=== PATIENT | female | born 1950 | race Caucasian/White ===

== ENCOUNTER → 2016-05-02 | Outpatient (CLI) | payer OTHER ==
[~2016-05-02] MED LIST: GADAVIST IV PRN
--- NOTE | 2016-05-02 11:53 | DIAGNOSTIC IMAGING REPORT ---
MRI OF THE BRAIN WITHOUT AND WITH IV CONTRAST CLINICAL HISTORY: Migraine headaches. COMPARISON STUDY: No previous studies for comparison. TECHNIQUE: Utilizing a 1.5 Anjali magnet and dedicated coil, multiplanar, multiecho imaging of the brain was performed pre and postcontrast administration. IV administration of 6.5 mL of Gadavist contrast was uneventful. FINDINGS: There are no areas of restricted diffusion. No acute intracranial hemorrhage, midline shift or mass effect is present. Brain volume is normal for age. Ventricular system is normal. The basilar cisterns are patent. There are no extra-axial collections. Flow-voids for the major intracranial vessels are present. There are no intracranial masses or areas of pathologic enhancement. There are innumerable white matter T2 hyperintense foci. Several signal is maintained. Orbits and sinuses are unremarkable. There is no fluid within the mastoid air cells. IMPRESSION: 1. No acute intracranial findings. 2. No intracranial masses. 3. Numerous white matter T2 hyperintense foci. While nonspecific, the findings statistically represent small vessel disease. Electronically signed by: Percy Yousif M.D. 05/02/2016 11:51 AM Dictated Date/Time: 05/02/2016 11:45 AM
== END | disposition home or self-care (01) ==
LOC: C.MRI 10:53
PROVIDERS: ATTEND Family Medicine
DX: G43.909 Migraine, unspecified, not intractable, without status migrainosus (principal)

== ENCOUNTER → 2016-05-08 | Outpatient (CLI) | payer OTHER | END | disposition home or self-care (01) | LOC: C.MAMM 11:02 | PROVIDERS: ATTEND Family Medicine | DX: Z13.820 Encounter for screening for osteoporosis (principal); M85.89 Other specified disorders of bone density and structure, multiple sites ==

== ENCOUNTER → 2016-05-24 | Outpatient (CLI) | payer OTHER | END | disposition home or self-care (01) | LOC: C.PAPS 16:39 | PROVIDERS: ATTEND Family Medicine | DX: Z12.4 Encounter for screening for malignant neoplasm of cervix (principal); N95.2 Postmenopausal atrophic vaginitis ==

== ENCOUNTER → 2016-06-07 | Outpatient (CLI) | payer OTHER ==
--- NOTE | 2016-06-08 07:55 | MAMMOGRAPHY REPORT ---
BILATERAL DIGITAL SCREENING MAMMOGRAM WITH CAD: 06/07/2016 CLINICAL HISTORY: Routine screening. Patient has no complaints. TECHNIQUE: Bilateral CC and MLO views were obtained. Current study was also evaluated with a Compute r Aided Detection (CAD) system. COMPARISON: Comparison is made to exams dated: 05/25/2015 mammogram, 05/22/2014 mammogram, 05/15/2013 ultrasound, 05/15/2013 mammogram, and 04/24/2013 mammogram - [facility]. BREAST COMPOSITION: The tissue of both breasts is heterogeneously dense, which may obscure small ma sses. FINDINGS: There is a 7 mm nodular asymmetry in the posterior right breast, along the posterior nipp le line on the CC view. Although this could represent normal overlapping tissue, additional spot co mpression tomosynthesis views and possible ultrasound are recommended. No other suspicious mass, architectural distortion or cluster of microcalcifications is seen bilater ally. IMPRESSION: ACR BI-RADS CATEGORY 0: INCOMPLETE EVALUATION: NEED ADDITIONAL IMAGING EVALUATION The 7 mm nodular asymmetry in the right breast needs additional evaluation. The patient will be called to schedule an appointment. Approximately 10% of breast cancers are not detected with mammography. A negative mammographic repor t should not delay biopsy if a clinically suggestive mass is present. Jenny Lee M.D. ay/:06/07/2016 15:59:36 Grease And Tallow Pumper: Jacqueline CHIN(R)(M), [facility] letter sent: Addl Imaging 0 BI-RADS Code: ACR BI-RADS Category 0: Incomplete Evaluation: Need Additional Imaging Evaluation
== END | disposition home or self-care (01) ==
LOC: C.MAMM 15:29
PROVIDERS: ATTEND Family Medicine
DX: Z12.31 Encounter for screening mammogram for malignant neoplasm of breast (principal); R92.8 Other abnormal and inconclusive findings on diagnostic imaging of breast

== ENCOUNTER → 2016-06-15 | Outpatient (CLI) | payer OTHER ==
--- NOTE | 2016-06-15 15:03 | MAMMOGRAPHY REPORT ---
UNILATERAL RIGHT DIGITAL DIAGNOSTIC MAMMOGRAM TOMOSYNTHESIS AND TARGETED RIGHT ULTRASOUND: 06/15/2016 CLINICAL HISTORY: Callback from screening mammogram for right breast asymmetry. TECHNIQUE: Breast tomosynthesis in addition to standard 2D mammography was performed. Right CC and MLO 2-D and tomosynthesis spot compression views were obtained. COMPARISON: Comparison is made to exams dated: 06/07/2016 mammogram, 05/25/2015 mammogram, 05/22/2014 m ammogram, 05/15/2013 ultrasound, 05/15/2013 mammogram, and 04/24/2013 mammogram - [facility]. BREAST COMPOSITION: The tissue of the right breast is heterogeneously dense, which may obscure smal l masses. FINDINGS: Spot compression views of the right breast demonstrate a probable obscured oval 12 mm mas s seen within the right 12:00 breast, which corresponds with the mammographic asymmetry in question. The mass is best seen on the tomosynthesis images. When compared to prior exams, the mass is like ly stable compared to the rolled cc view from the 05/15/2013 exam. Targeted ultrasound was performed of the right 12:00, 6:00, and subareolar breast. In the right 12: 00 breast, 2 cm from the nipple, there is an oval circumscribed parallel isoechoic mass with a few a nechoic cystic spaces seen internally, measuring 10 x 5 x 8 mm. An ultrasound was previously perfor med of this mass on 05/15/2013. Based on the prior images, the mass was shown to measure 7 x 5 mm, a lthough it is unclear which position the transducer was in when the images were taken and there are differences in measurement technique between the current and prior exam. Based on the fact that the mammograms show probable stability of the mass and given the differences in measurement technique, the mass is likely stable compared to the 2013 exam, and is probably benign and likely represents a fibroadenoma. Recommend follow-up ultrasound of the right breast in 6 months to confirm stability, given the differences in ultrasound measurements. IMPRESSION: ACR-BI-RADS CATEGORY 3: PROBABLY BENIGN, TARGETED ULTRASOUND ACR-BI-RADS CATEGORY 3: NC OBABLY BENIGN Isoechoic 10 mm mass in the right 12:00 breast, which is likely stable compared to the May 2013 ex am. The mass is probably benign and likely represents a fibroadenoma. Recommend follow-up ultrasou nd and possible diagnostic mammograms of the right breast in 6 months to confirm stability. The patient has been verbally notified of the results. Approximately 10% of breast cancers are not detected with mammography. A negative mammographic repor t should not delay biopsy if a clinically suggestive mass is present. Evi Ley M.D. ah/:06/15/2016 10:07:46 Senior Power Plant Operator: Jacqueline CHIN(Gus)(Andria), [facility] letter sent: Follow Up Recommended 3 BI-RADS Code: ACR-BI-RADS Category 3: Probably Benign Ultrasound BI-RADS: ACR-BI-RADS Category 3: P robably Benign
== END ==
LOC: C.MAMM 08:44
PROVIDERS: ATTEND Family Medicine
DX: N64.89 Other specified disorders of breast (principal)

== ENCOUNTER → 2016-06-21 | Outpatient (CLI) | payer OTHER ==
[2016-06-27 11:15] LABS: O&P GIARDIA AG NOT DETECTED (NOT DETECTED); O&P SOURCE OTHER-STOOL
== END | disposition home or self-care (01) ==
LOC: C.LAB 10:15
PROVIDERS: ATTEND Family Medicine
DX: R19.7 Diarrhea, unspecified (principal)

== ENCOUNTER → 2016-12-22 | Outpatient (CLI) | payer OTHER ==
--- NOTE | 2016-12-22 13:43 | MAMMOGRAPHY REPORT ---
UNILATERAL RIGHT DIGITAL DIAGNOSTIC MAMMOGRAM TOMOSYNTHESIS WITH CAD AND TARGETED RIGHT ULTRASOUND: 1 CLINICAL HISTORY: Six-month follow-up of right breast mass. TECHNIQUE: Breast tomosynthesis in addition to standard 2D mammography was performed. Current study was also evaluated with a Computer Aided Detection (CAD) system. Right CC and MLO 2-D and tomosynthe sis images were obtained. COMPARISON: Comparison is made to exams dated: 06/15/2016 ultrasound, 06/15/2016 mammogram, 06/07/2016 m ammogram, 05/25/2015 mammogram, 05/22/2014 mammogram, and 05/15/2013 ultrasound - [facility]. BREAST COMPOSITION: The tissue of the right breast is heterogeneously dense, which may obscure small masses. FINDINGS: Again noted is an oval obscured 9 mm mass within the right superior breast middle depth, b est seen on the cc tomosynthesis images. The mass is stable compared to the June 2016 exam and in r etrospect also appears stable compared to the rolled cc view from the May 2013 exam. The remainder of the right breast is stable compared to prior exams, without suspicious masses, calcifications, or areas of architectural distortion noted. Targeted ultrasound was performed of the area of the previously seen right breast mass. In the right breast at 12:00, 2 cm from the nipple, again noted is an oval circumscribed parallel isoechoic mass with a few anechoic cystic spaces seen internally, measuring 8 x 10 x 6 mm. This is stable in size a nd appearance compared to the June 2016 exam. This corresponds with the mammographic mass which has been stable dating back to at least the May 2013 exam. Given the long-term stability, the mass is considered benign and likely represents a fibroadenoma. IMPRESSION: ACR BI-RADS CATEGORY 2: BENIGN, TARGETED ULTRASOUND ACR BI-RADS CATEGORY 2: BENIGN Stable 10 mm isoechoic mass in the right 12:00 breast, which is stable on ultrasound compared to the June 2016 exam, and is stable mammographically dating back to the May 2013 exam. Given the long-t erm stability, the mass is considered benign and likely represents a fibroadenoma. There is no mammo graphic or targeted sonographic evidence of malignancy. Return to annual mammogram screening schedule is recommended, due June 2017. The patient has been verbally notified of the results. Approximately 10% of breast cancers are not detected with mammography. A negative mammographic report should not delay biopsy if a clinically suggestive mass is present. Evi Ley M.D. ah/:12/22/2016 10:34:18 Medical Office Representative: Hawa CHIN(R)(M), [facility] letter sent: Normal 1/2 BI-RADS Code: ACR BI-RADS Category 2: Benign Ultrasound BI-RADS: ACR BI-RADS Category 2: Benign
== END | disposition home or self-care (01) ==
LOC: C.MAMM 10:09
PROVIDERS: ATTEND Family Medicine
DX: Z09 Encounter for follow-up examination after completed treatment for conditions other than malignant neoplasm (principal); N63.10 Unspecified lump in the right breast, unspecified quadrant

== ENCOUNTER → 2017-06-12 | Outpatient (CLI) | payer OTHER ==
--- NOTE | 2017-06-12 15:25 | MAMMOGRAPHY REPORT ---
BILATERAL DIGITAL SCREENING MAMMOGRAM TOMOSYNTHESIS WITH CAD: 06/12/2017 CLINICAL HISTORY: Routine screening. Patient has no complaints. TECHNIQUE: Breast tomosynthesis in addition to standard 2D mammography was performed. Current study was also evaluated with a Computer Aided Detection (CAD) system. COMPARISON: Comparison is made to exams dated: 12/22/2016 ultrasound, 12/22/2016 mammogram, 7 ultrasound, 06/15/2016 mammogram, 06/07/2016 mammogram, and 05/25/2015 mammogram - [facility]. BREAST COMPOSITION: The tissue of both breasts is heterogeneously dense, which may obscure small mas ses. FINDINGS: There is a stable circumscribed mass in the 12:00 right breast. No new suspicious mass, ar chitectural distortion or cluster of microcalcifications is seen. IMPRESSION: ACR BI-RADS CATEGORY 1: NEGATIVE There is no mammographic evidence of malignancy. A 1 year screening mammogram is recommended. The pa tient will receive written notification of the results. Approximately 10% of breast cancers are not detected with mammography. A negative mammographic report should not delay biopsy if a clinically suggestive mass is present. Jenny Lee M.D. ay/:06/12/2017 15:08:48 Jewelry Sales: Hawa CHIN(R)(M), [facility] letter sent: Normal 1/2 BI-RADS Code: ACR BI-RADS Category 1: Negative
== END | disposition home or self-care (01) ==
LOC: C.MAMM 10:13
PROVIDERS: ATTEND Family Medicine
DX: Z12.31 Encounter for screening mammogram for malignant neoplasm of breast (principal); M85.89 Other specified disorders of bone density and structure, multiple sites; M81.0 Age-related osteoporosis without current pathological fracture

== ENCOUNTER → 2017-06-26 | Outpatient (CLI) | payer OTHER | END | disposition home or self-care (01) | LOC: C.PAPS 11:58 | PROVIDERS: ATTEND Family Medicine | DX: Z12.72 Encounter for screening for malignant neoplasm of vagina (principal) ==

== ENCOUNTER 2017-10-18 19:58 | Emergency (ER) | payer OTHER ==
[~2017-10-18] VITALS: Ht 167.6 cm; Wt 70.3 kg
[2017-10-18 20:08] VITALS: TEMP 36.3; Ht 167.6 cm; Wt 70.3 kg
[2017-10-18 20:45] VITALS: O2SAT 96
[2017-10-18] MEDS ORDERED: ATOR10TA82 PO (21:00)
[2017-10-18] MEDS ORDERED: MULT-240 PO (21:01)
[2017-10-18 21:26] LABS: BASO % 0.6 %; BASO ABS # 0.04 K/uL (0-0.2); EOS % 0.6 %; EOS ABS # 0.04 K/uL (0-0.5); HEMATOCRIT 38.2 % (37-47); HEMOGLOBIN 12.8 g/dL (12.0-16.0); IG# 0.01 K/uL (0.00-0.02); LYMPH % 22.9 %; MEAN CELL VOLUME 92.3 fL (80-100); MEAN CORPUSCULAR HEMOGLOBIN 30.9 pg (25-34); MEAN CORPUSCULAR HGB CONC 33.5 g/dl (32-36); MEAN PLATELET VOLUME 9.2 fL (7.4-10.4); MONO % 6.4 %; MONO ABS # 0.42 K/uL (0.11-0.59); NEUT % 69.3 %; NEUT ABS # 4.53 K/uL (1.4-6.5); PLATELET COUNT 211 K/uL (130-400); RED CELL DISTRIBUTION WIDTH CV 13.1 % (11.5-14.5); RED CELL DISTRIBUTION WIDTH SD 44.4 fL (36.4-46.3); WHITE BLOOD COUNT 6.54 K/uL (4.8-10.8)
--- NOTE | 2017-10-18 21:49 | DIAGNOSTIC IMAGING REPORT ---
SINGLE VIEW CHEST CLINICAL HISTORY: Generalized weakness. FINDINGS: An AP, portable, upright chest radiograph is compared to study dated 08/08/2013. The examination is degraded by portable technique and patient rotation. The heart is enlarged and there is atherosclerotic calcification of the thoracic aorta. The pulmonary vasculature is noncongested. Chronic interstitial thickening is similar to previous. No airspace consolidation or large pleural effusion is identified. No pneumothorax is seen. The skeletal structures are osteopenic. The bony thorax is grossly intact. IMPRESSION: Cardiomegaly with no acute cardiopulmonary abnormality. Electronically signed by: Grant Mitchell M.D. 10/18/2017 9:48 PM Dictated Date/Time: 10/18/2017 9:47 PM
[2017-10-18 21:51] LABS: ALBUMIN 3.6 gm/dl (3.4-5.0); ALT/SGPT 45 U/L (12-78); BLOOD UREA NITROGEN 19 mg/dl (7-18); CALCIUM 8.9 mg/dl (8.5-10.1); CARBON DIOXIDE 27 mmol/L (21-32); CREATININE 0.78 mg/dl (0.60-1.20); GLUCOSE 126 mg/dl (70-99); SODIUM 139 mmol/L (136-145)
[2017-10-18 21:56] LABS: ALKALINE PHOSPHATASE 120 U/L (45-117); PHOSPHORUS 3.6 mg/dl (2.5-4.9); POTASSIUM 3.9 mmol/L (3.5-5.1); TOTAL PROTEIN 7.1 gm/dl (6.4-8.2)
[2017-10-18 21:58] LABS: AST/SGOT 31 U/L (15-37)
--- NOTE | 2017-10-18 22:17 | EMERGENCY ROOM VISIT NOTE ---
History Report prepared by Khang: Mayuri Oquendo Under the Supervision of: Dr. Tristen Mendez M.D. First contact with patient: 20:23 Chief Complaint: DIZZY Stated Complaint: DIZZY,WEAK,OVERHEATED,NAUSEA Nursing Triage Summary: pt states "i was at dinner, at the [employer] restaurant, and all of a sudden i just felt so tired, i felt like weak all over. we were suppose to go to a play and i thought i wouldn't be able to stay awake through it. when we were leaving i felt nauseaous like i could throw up." pt reports generalized weakness and fatigue. states "i have a irregular heart beat, like it skips a beat sometimes. i have an apple watch and it said my heart rate was up to 180 and the lowest was down to 40. that seems pretty high." upon assessment, pt alert and oriented x4. pt breathing WNL, respirations regular and unlabored, lungs clear. skin warm and dry. pt denies pain, denies chest pain. speech clear. following commands appropriately. History of Present Illness The patient is a 67 year old female with a past medical history of premature heart beats who presents to the ED with a cc of sudden dizziness beginning 2.5 hours ago. The patient states that she was at dinner and started feeling dizzy, lightheaded, hot, and nauseous. She states that they were supposed to go to a play, but she told her to take her home. She states that when she got home she noticed that when her symptoms started her heart rate had jumped into the 180s according to her Apple Watch. She notes that 20 minutes later it said her heart rate dropped into the 40s. She notes that this happened to her once before, but is unsure why it happened. Negative chest pain , shortness of breath, fevers, chills, cough, vaginal bleeding, rectal bleeding , recent travel, antibiotic use, use of blood thinners, anxiety, drinking a lot of a caffeine, using stimulants, and using weight loss drugs. Source of History: patient Onset: 2.5 hours ago Position: head Quality: other (dizziness) Timing: other (sudden) Associated Symptoms: + nausea, No fevers, No chills, No cough, No chest pain , No SOB Note: The patient complains of lightheadedness, being hot, and an increased heart rate. The patient denies vaginal bleeding, rectal bleeding, recent travel, antibiotic use, use of blood thinners, anxiety, drinking a lot of a caffeine, using stimulants, and using weight loss drugs. Review of Systems See HPI for pertinent positives and negatives. A total of ten systems were reviewed and were otherwise negative. Past Medical & Surgical Medical Problems: (1) Premature beats Family History FH: CAD (coronary artery disease) Social History Smoking Status: Never Smoker Smokeless Tobacco Use: No Alcohol Use: none Drug Use: none Marital Status: Housing Status: lives with significant other Current/Historical Medications Scheduled Atorvastatin (Lipitor), 10 MG PO DAILY Multiple Vitamins W/ Minerals (Womens One Daily), 1 TAB PO DAILY Allergies Coded Allergies: No Known Allergies (Unverified , 10/18/17) Physical Exam Vital Signs Date Time Temp Pulse Resp B/P (MAP) Pulse Ox O2 Delivery O2 Flow Rate FiO2 10/18/17 22:20 72 18 123/81 96 10/18/17 20:45 96 Room Air 10/18/17 20:20 78 18 129/82 98 Room Air 86 129/98 105 141/86 10/18/17 20:20 93 10/18/17 20:08 36.3 88 18 127/86 96 Room Air Physical Exam GENERAL: Awake, alert, well-appearing, NAD, wearing glasses. HENT: Normocephalic, atraumatic. EYES: Normal conjunctiva. Sclera non-icteric. PERRL. No anisocoria. NECK: Supple. No nuchal rigidity. FROM. RESPIRATORY: CTAB, no rhonchi, wheezing, crackles CARDIAC: RRR, no MRG ABDOMEN: Soft, NTND, BS+ MSK: No chest wall TTP, no LE edema NEURO: GCS 15, CN 2-12 intact, moves all 4s on command SKIN: No rash or jaundice noted. Medical Decision & Procedures ER Provider Diagnostic Interpretation: Radiology results as stated below per my review and radiologist interpretation: SINGLE VIEW CHEST CLINICAL HISTORY: Generalized weakness. FINDINGS: An AP, portable, upright chest radiograph is compared to study dated 08/08/2013. The examination is degraded by portable technique and patient rotation. The heart is enlarged and there is atherosclerotic calcification of the thoracic aorta. The pulmonary vasculature is noncongested. Chronic interstitial thickening is similar to previous. No airspace consolidation or large pleural effusion is identified. No pneumothorax is seen. The skeletal structures are osteopenic. The bony thorax is grossly intact. IMPRESSION: Cardiomegaly with no acute cardiopulmonary abnormality. Electronically signed by: Grant Mitchell M.D. 10/18/2017 9:48 PM Dictated Date/Time: 10/18/2017 9:47 PM Laboratory Results 10/18/17 21:13 Red Blood Count 4.14, Mean Corpuscular Volume 92.3, Mean Corpuscular Hemoglobin 30.9, Mean Corpuscular Hemoglobin Concent 33.5, Mean Platelet Volume 9.2, Neutrophils (%) (Auto) 69.3, Lymphocytes (%) (Auto) 22.9, Monocytes (%) (Auto) 6.4, Eosinophils (%) (Auto) 0.6, Basophils (%) (Auto) 0.6, Neutrophils # (Auto) 4.53, Lymphocytes # (Auto) 1.50, Monocytes # (Auto) 0.42, Eosinophils # (Auto) 0.04, Basophils # (Auto) 0.04 10/18/17 21:13 Test 10/18/17 21:13 10/18/17 21:33 White Blood Count 6.54 K/uL (4.8-10.8) Red Blood Count 4.14 M/uL (4.2-5.4) Hemoglobin 12.8 g/dL (12.0-16.0) Hematocrit 38.2 % (37-47) Mean Corpuscular Volume 92.3 fL (80-100) Mean Corpuscular Hemoglobin 30.9 pg (25-34) Mean Corpuscular Hemoglobin Concent 33.5 g/dl (32-36) Platelet Count 211 K/uL (130-400) Mean Platelet Volume 9.2 fL (7.4-10.4) Neutrophils (%) (Auto) 69.3 % Lymphocytes (%) (Auto) 22.9 % Monocytes (%) (Auto) 6.4 % Eosinophils (%) (Auto) 0.6 % Basophils (%) (Auto) 0.6 % Neutrophils # (Auto) 4.53 K/uL (1.4-6.5) Lymphocytes # (Auto) 1.50 K/uL (1.2-3.4) Monocytes # (Auto) 0.42 K/uL (0.11-0.59) Eosinophils # (Auto) 0.04 K/uL (0-0.5) Basophils # (Auto) 0.04 K/uL (0-0.2) RDW Standard Deviation 44.4 fL (36.4-46.3) RDW Coefficient of Variation 13.1 % (11.5-14.5) Immature Granulocyte % (Auto) 0.2 % Immature Granulocyte # (Auto) 0.01 K/uL (0.00-0.02) Anion Gap 7.0 mmol/L (3-11) Est Creatinine Clear Calc Drug Dose 66.4 ml/min Estimated GFR () 91.8 Estimated GFR (Non- 79.2 BUN/Creatinine Ratio 23.8 (10-20) Calcium Level 8.9 mg/dl (8.5-10.1) Phosphorus Level 3.6 mg/dl (2.5-4.9) Magnesium Level 2.3 mg/dl (1.8-2.4) Total Bilirubin 0.5 mg/dl (0.2-1) Direct Bilirubin 0.1 mg/dl (0-0.2) Aspartate Amino Transf (AST/SGOT) 31 U/L (15-37) Alanine Aminotransferase (ALT/SGPT) 45 U/L (12-78) Alkaline Phosphatase 120 U/L (45-117) Troponin I < 0.015 ng/ml (0-0.045) Total Protein 7.1 gm/dl (6.4-8.2) Albumin 3.6 gm/dl (3.4-5.0) Thyroid Stimulating Hormone (TSH) 0.538 uIu/ml (0.300-4.500) Bedside Glucose 147 mg/dl (70-90) Laboratory results reviewed by me ECG Per My Interpretation Indication: nausea Rate (beats per minute): 74 Rhythm: sinus rhythm Findings: 1st degree AV block, Q waves (Lateral and inferior), T-wave inversion (lead 3), left axis deviation, other (normal QRS) Comparison ECG Date: 05/11/2016 Change: Q waves in lateral leads are new. ED Course 2026: The patient was evaluated in room A2. A complete history and physical exam was performed. 0: I reevaluated the patient. Discussed results and discharge instructions: She verbalized understanding and agreement. The patient is ready for discharge. Medical Decision The patient is a 67 year old female with a past medical history of premature heart beats who presents to the ED with a cc of sudden dizziness beginning 2.5 hours ago. Nursing notes reviewed. Ancillary studies and prior records reviewed. Differential diagnosis: Etiologies such as premature contractions, electrolyte abnormality, cardiac dysrhythmia, thyroid dysfunction, pulmonary embolism, infection, gastrointestinal, as well as others were entertained. Patient was seen and evaluated the bedside. Patient noted that she had an episode of feeling like she was having some palpitations and looked at her upper watch noted that her heart rate was 180 the patient also noted that she felt very nauseous and hot. Patient denies any recent prolonged outdoor exposures, caffeine, stimulants or weight loss drugs, excessive alcohol or thyroid issues. Patient denies any chest pains or shortness of breath. Patient states she feels much improved compared to prior. Patient's EKG does show some Q waves in the lateral and inferior leads. Likely is old especially given the patient's lack chest pain. Patient did have blood work completed EKG was told to tolerate p.o. fluids. Patient's EKG does show some questionable Q waves in the lateral leads. I was able to obtain an old EKG to the cyanide case hardener. These are new changes. The patient's TW widely 3 appears old. Patient's troponin is not elevated. Given this and the lack of chest pain I do not believe she is having an acute event. The patient again is asymptomatic at this time. Patient has fairly normal blood work and no abnormalities in TSH her lecture lites. The patient may have an element of dehydration. I did reassess the patient is feeling improved. I did state to the patient that she did have some EKG changes but given her lack of symptoms as well as an undetectable troponin less likely an acute event. Patient was told to follow-up with her primary care and to schedule an appointment tomorrow in order to see them in addition to possible follow-up for additional testing and treatment from cardiology or other outpatient test like a Holter monitor. Patient was given strict follow-up, discharge, and return precautions. All questions were answered. Patient was deemed suitable for outpatient follow-up at this time. Patient agreed with the plan of care and was safely discharged home. Medication Reconcilliation Current Medication List: was personally reviewed by me Blood Pressure Screening Patient's blood pressure: Normal blood pressure Blood pressure disposition: Did not require urgent referral Impression Primary Impression: Palpitations Additional Impression: Dehydration Scribe Attestation The scribe's documentation has been prepared under my direction and personally reviewed by me in its entirety. I confirm that the note above accurately reflects all work, treatment, procedures, and medical decision making performed by me. Departure Information Dispostion Home / Self-Care Referrals No Doctor, Assigned (PCP) Forms HOME CARE DOCUMENTATION FORM, IMPORTANT VISIT INFORMATION Patient Instructions Dehydration, ED Palpitations, My [facility] Additional Instructions Please return to the emergency department if you have worsening or recurrent symptoms not amenable to at-home treatment. Please call for a follow-up appointment with her primary care physician. Please take your medications as prescribed. If you have other concerns and/or complaints please feel free to also call your primary care physician's office or return the ED for further evaluation, management, and treatment. You may take tylenol 650 mg every 6 hours as needed for pain/fever unless told by your physician to not take it or have liver problems. Take your medications as prescribed. You have been examined and treated today on an emergency basis only. This is not a substitute for, or an effort to provide, complete comprehensive medical care. It is impossible to recognize and treat all injuries or illnesses in a single emergency department visit. It is therefore important that you follow up closely with [facility], your PCP, and/or your specialist(s). Call as soon as possible for an appointment. Thank you for your time and consideration. I look forward to speaking with you again soon. Please don't hesitate to call us if you have any questions. Problem Qualifiers
[2017-10-18 22:20] VITALS: BP 123/81; PULSE 72; O2SAT 96
== END 2017-10-18 22:20 | disposition home or self-care (01) ==
LOC: C.EDB 19:59 → C.EDA 22:20
DX: R00.2 Palpitations (principal); E86.0 Dehydration; Z82.49 Family history of ischemic heart disease and other diseases of the circulatory system; Z79.899 Other long term (current) drug therapy